=== PATIENT | male | born 1990 | race Caucasian/White ===

== ENCOUNTER 2025-03-06 22:08 | Emergency (ER) | payer BC ==
[~2025-03-06] VITALS: Ht 177.8 cm; Wt 65.8 kg
[2025-03-06 22:59] LABS: BASOPHILS # (AUTO) 0.2 (0.0-0.1); BASOPHILS % 1.2 % (0.0-1.0); EOSINOPHILS % 0.2 % (0.0-6.0); HEMATOCRIT 46.7 % (34.2-44.1); HEMOGLOBIN 16.4 g/dL (12.0-16.0); LYMPHOCYTES # (AUTO) 1.6 (1.0-3.2); LYMPHOCYTES % 11.9 % (18.0-39.1); MEAN CORPUSCULAR HEMOGLOBIN 30.4 pg (28-32); MEAN CORPUSCULAR HGB CONC 35.1 g/dL (31-35); MEAN CORPUSCULAR VOLUME 86.5 fL (81-99); MONOCYTES # (AUTO) 0.9 (0.2-0.8); MONOCYTES % 6.4 % (4.4-11.3); NEUTROPHILS # (AUTO) 10.6 (2.1-6.9); NEUTROPHILS % 79.9 % (38.7-80.0); PLATELET COUNT 360 x10e3/uL (140-360); RED CELL DISTRIBUTION WIDTH 11.5 % (11.7-14.4); WHITE BLOOD COUNT 13.28 x10e3/uL (4.8-10.8)
[2025-03-06 23:05] LABS: ALANINE AMINOTRANSFERASE 30 IU/L (0-55); ALBUMIN 4.8 g/dL (3.5-5.0); ALBUMIN/GLOBULIN RATIO 1.4 (0.8-2.0); ALKALINE PHOSPHATASE 43 IU/L (40-150); ANION GAP 21.5 mmol/L (8-16); BILIRUBIN,TOTAL 1.4 mg/dL (0.2-1.2); BLOOD UREA NITROGEN 11 mg/dL (7-26); BUN/CREATININE RATIO 11 (6-25); CALCIUM 9.7 mg/dL (8.4-10.2); CARBON DIOXIDE 21 mmol/L (22-29); CHLORIDE 99 mmol/L (98-107); CREATINE KINASE 302 IU/L (29-168); CREATININE, SERUM 0.97 mg/dL (0.57-1.11); EST GLOMERULAR FILTRATION RATE 79 ML/MIN (>=60); GLUCOSE 124 mg/dL (74-118); POTASSIUM 3.5 mmol/L (3.5-5.1); SODIUM 138 mmol/L (136-145); TOTAL PROTEIN 8.2 g/dL (6.5-8.1)
[2025-03-06 23:12] VITALS: PULSE 90; RESP 20; O2SAT 100
[2025-03-06 23:12] LABS: TROPONIN I < 0.001 ng/mL (0-0.300)
[2025-03-06] MEDS: ALBUTEROL/IPRATROPIUM 3 ML NEB NEB STA (23:12)
[2025-03-06 23:27] VITALS: PULSE 84; RESP 18
[2025-03-06] MEDS: KETOROLAC TROMETHAMINE 30 MG/ML VIAL IV STA (23:50)
[2025-03-07] MEDS ORDERED: IOPAMIDOL 370 MG/ML 100 ML INFUS..BTL INJ ONE (00:16)
[2025-03-07] MEDS: SODIUM CHLORIDE 0.9% 1000ML 1,000 ML IV STA (00:25)
[2025-03-07] MEDS ORDERED: SODIUM CHLORIDE 0.9% 1000ML 1,000 ML IV SCH (01:00)
[2025-03-07] MEDS ORDERED: Morphine 4mg INJECTION 4 MG/ML INJ IV PRN (01:00)
[2025-03-07] MEDS ORDERED: ONDANSETRON HCL INJ 2MG/ML 2ML 2 MG/ML VIAL IV PRN (01:00)
[2025-03-07] MEDS ORDERED: AZITHROMYCIN250 MG PO (01:18)
[2025-03-07] MEDS ORDERED: KETOROLAC TROME10 MG PO (01:18)
[2025-03-07] MEDS ORDERED: PREDNISONE20 MG PO (01:18)
[2025-03-07 01:40] VITALS: PULSE 87; RESP 22; TEMP 98.3; O2SAT 100
[2025-03-07] MEDS ORDERED: KETOROLAC TROMETHAMINE 30 MG/ML VIAL IV PRN (06:00)
== END 2025-03-07 01:41 | disposition home or self-care (01) ==
LOC: ER 22:15 → EDSEX 22:15 → ER 03-07 01:41
DX: R06.02 Shortness of breath (principal); R07.89 Other chest pain; Z87.820 Personal history of traumatic brain injury; F17.290 Nicotine dependence, other tobacco product, uncomplicated
CPT/HCPCS: 36415; 71260; 80053; 82550; 83690; 83880; 84484; 85025; 93005; 94640; 94799; 99284; J1885; J7030; Q9967